=== PATIENT | female | born 1980 | race Two or more races ===

== ENCOUNTER 2023-11-30 14:54 | Outpatient (CLI) | payer OTHER ==
[~2023-11-30 14:54] MED LIST: CATAFLAM50 MG PO; MOBIC7.5 MG PO; NUCYNTA ER100 MG PO; PARAFON FORTE500 MG PO
== END 2023-11-30 14:58 | disposition home or self-care (01) ==
LOC: PRENATAL 14:54
PROVIDERS: ATTEND Obstetrics & Gynecology Maternal & Fetal Medicine
DX: O35.3XX0 Maternal care for (suspected) damage to fetus from viral disease in mother, not applicable or unspecified (principal); O44.00 Complete placenta previa NOS or without hemorrhage, unspecified trimester; O09.529 Supervision of elderly multigravida, unspecified trimester; O34.219 Maternal care for unspecified type scar from previous cesarean delivery; Z3A.20 20 weeks gestation of pregnancy

== ENCOUNTER 2024-02-21 13:21 | Outpatient (CLI) | payer OTHER | END 2024-02-21 13:25 | disposition home or self-care (01) | LOC: PRENATAL 13:21 | PROVIDERS: ATTEND Obstetrics & Gynecology Maternal & Fetal Medicine | DX: O26.849 Uterine size-date discrepancy, unspecified trimester (principal); O36.8199 Decreased fetal movements, unspecified trimester, other fetus; O09.529 Supervision of elderly multigravida, unspecified trimester; O34.219 Maternal care for unspecified type scar from previous cesarean delivery; Z3A.32 32 weeks gestation of pregnancy ==